=== PATIENT | female | born 1970 | race Caucasian/White ===

== ENCOUNTER → 2021-03-19 | Outpatient (CLI) | payer BC, OTHER | LOC: RAD 11:12 | DX: M25.552 Pain in left hip (principal); M25.562 Pain in left knee; M17.12 Unilateral primary osteoarthritis, left knee | CPT/HCPCS: 73502; 73562 ==

== ENCOUNTER → 2021-11-11 | Outpatient (CLI) | payer BC | LOC: KOH-I 08:18 | DX: R10.83 Colic (principal); K76.0 Fatty (change of) liver, not elsewhere classified | CPT/HCPCS: 76705 ==

== ENCOUNTER → 2022-06-13 | Outpatient (CLI) | payer BC | LOC: RAD 11:38 | DX: M54.2 Cervicalgia (principal) | CPT/HCPCS: 72050 ==